=== PATIENT | female | born 1995 | race Hispanic/Latino ===

== ENCOUNTER 2019-08-23 20:03 | Emergency (ER) | payer OTHER, SELFPAY ==
[2019-08-23 20:10] VITALS: BP 130/81; PULSE 78; RESP 16; TEMP 36.9; O2SAT 100
[2019-08-23 20:21] VITALS: BP 130/81; PULSE 84; O2SAT 97
--- NOTE | 2019-08-23 20:26 | ED_ITS ---
HPI - Female Genitourinary <Smith TavarezBLU - Last Filed: 08/23/19 21:13> General Chief complaint: Urogenital-Female Stated complaint: thinks UTI Time Seen by Provider: 08/23/19 20:11 Source: patient and family Mode of arrival: Ambulatory Limitations: no limitations History of Present Illness HPI Narrative: This is a 24-year-old female, nonsmoker, who presents to ED with urinary urgency, frequency, cloudy urine for last 2 days. Patient reports tingling sensation during but worst at the and of urination. Patient reports she start seeing blood in her urine yesterday. Patient states no history of UTI or kidney infections in the past. Patient reports a new sexual partner. Patient was treated with Z-Dave in June 2019 for strep throat infection. Patient denies fever, chills, nausea or vomiting. Patient has been taking [id number] infection for urinary discomfort. LMP in 07/07/19 and uses Mirena for birthcontrol. Patient denies pelvic pain, lesions in her perineum area. Related Data Previous Rx's Medication Instructions Recorded nitrofurantoin macrocrystal 100 mg PO BID 5 Days #10 cap 08/23/19 phenazopyridine [Pyridium] 100 mg PO Q8H PRN #6 tab 08/23/19 Allergies Allergy/AdvReac Type Severity Reaction Status Date / Time No Known Drug Allergies Allergy Verified 08/23/19 21:11 Review of Systems <Smith TavarezBLU - Last Filed: 08/23/19 21:13> Review of Systems Narrative: General: Denies fever, chills, fatigue, malaise, sweats. HEENT: Denies sinus pain, ear pain, sore throat, difficulty swallowing, dizziness. Respiratory: Denies dyspnea, cough, wheezing, hemoptysis, sputum. Cardiovascular: Denies chest pain, palpitations, orthopnea, edema. Gastrointestinal: Denies nausea, vomiting, abdominal pain, diarrhea, constip ation, melena. : See HPI Musculoskeletal: Denies weakness, joint pain or bony pain. Skin: Denies rash, skin lesions, or other. Neurologic: Denies weakness, headache, numbness, change in speech, confusion, seizures, incoordination. Psychiatric: No concerning psychosocial issues. 12-point review of systems is negative except for those stated above. Patient History <BLU Wiseman - Last Filed: 08/23/19 21:13> Medical History (Updated 08/23/19 @ 21:10 by BLU Wiseman) Strep throat (Acute) Smoking Status: Never smoker alcohol intake frequency: 0-2 drinks per day Substance Use Type: does not use Exam <BLU Wiseman - Last Filed: 08/23/19 21:13> Narrative Exam Narrative: GEN: Alert, oriented x 3, well appearing and nourished, and in no acute distress. Head: Normal cephalic, atraumatic. No scalp or temporal tenderness, palpable mass or rash. EYES: Pupils are equal, round, and reactive to light and accommodation. Extraocular muscles are intact bilaterally. There is no subconjunctival hemorrhage, exudate and sclera non-icteric. ENT: Hearing grossly intact. Nose without bleeding, purulent discharge. Mucous membrane moist, no mucosal lesion. Throat without erythema, tonsillar hypertrophy or exudate. Uvula in midline, airway patent. Neck: Trachea in midline. No JVD, non-tender without lymphadenopathy. No masses or thyroid megaly. Supple, non-tender and no meningeal signs. CARDIAC: Normal regular rate and rhythm without murmurs, gallops, or rubs. No chest wall tenderness. No peripheral edema, cyanosis or pallor. Capillary refill is less than 2 seconds. RESPIRATORY: Lungs are clear to auscultate bilaterally. No cough, wheezes, rales, or rhonchi. No stridor, respiratory distress, increase work of breathing, or accessary muscle used. ABD: Abdomen soft, nontender and non-distended. No guarding or rebound tenderness to palpate. Bowel sounds are normal in all 4 quadrants. There is no palpable masses or organomegaly. EXT: Full painless ROM of all extremities with no loss of sensation, strength, effusion or edema. SKIN: Warm, dry, normal color for patient. No erythema, lesions or rash over visible areas. BACK: Nontender without deformity or crepitance. No flank tenderness. NEUROLOGICAL: Alert and oriented to place, time and person. Sensation and motor function intact bilaterally. No facial droops, dysphasia. PSYCHIATRIC: Good judgement and reason, without hallucinations, abnormal affect or abnormal behaviors during the examination. Initial Vital Signs Initial Vital Signs: Vital Signs Temperature 98.5 F 08/23/19 20:10 Pulse Rate 78 08/23/19 20:10 Respiratory Rate 16 08/23/19 20:10 Blood Pressure 130/81 08/23/19 20:10 Pulse Oximetry 100 08/23/19 20:10 <Angel Flynn DO - Last Filed: 08/23/19 23:40> Initial Vital Signs Initial Vital Signs: Vital Signs Temperature 98.5 F 08/23/19 20:10 Pulse Rate 78 08/23/19 20:10 Respiratory Rate 16 08/23/19 20:10 Blood Pressure 130/81 08/23/19 20:10 Pulse Oximetry 100 08/23/19 20:10 Scores <BLU Wiseman - Last Filed: 08/23/19 21:13> GCS Cheney coma scale eye opening: Spontaneous Cheney coma scale verbal response: Orientated Maddi coma scale motor response: Obey commands Cheney coma scale total score: 15 Course <BLU Wiseman - Last Filed: 08/23/19 21:13> Orders Ordered: ED Orders 08/23/19 20:16 Urinalysis and Microscopic Stat Urine Culture Stat Discontinued Medications Nitrofurantoin Macrocrystals (Macrobid 100 Mg Capsule) 100 mg PO NOW ONE Stop: 08/23/19 21:00 Last Admin: 08/23/19 21:18 Dose: 100 mg Documented by: AZEB Phenazopyridine HCl (Pyridium) 100 mg PO NOW ONE Stop: 08/23/19 21:00 Last Admin: 08/23/19 21:18 Dose: 100 mg Documented by: AZEB Vital Signs Vital signs: Vital Signs - 8 hr 08/23/19 20:10 08/23/19 20:21 08/23/19 21:50 Temperature 98.5 F Pulse Rate 78 84 68 Respiratory Rate 16 18 Blood Pressure 130/81 139/78 Blood Pressure [Left Arm] 130/81 Pulse Oximetry 100 97 99 <DO Alexis Smith Last Filed: 08/23/19 23:40> Orders Ordered: ED Orders 08/23/19 20:16 Urinalysis and Microscopic Stat Urine Culture Stat Discontinued Medications Nitrofurantoin Macrocrystals (Macrobid 100 Mg Capsule) 100 mg PO NOW ONE Stop: 08/23/19 21:00 Last Admin: 08/23/19 21:18 Dose: 100 mg Documented by: AZEB Phenazopyridine HCl (Pyridium) 100 mg PO NOW ONE Stop: 08/23/19 21:00 Last Admin: 08/23/19 21:18 Dose: 100 mg Documented by: AZEB Vital Signs Vital signs: Vital Signs - 8 hr 08/23/19 20:10 08/23/19 20:21 08/23/19 21:50 Temperature 98.5 F Pulse Rate 78 84 68 Respiratory Rate 16 18 Blood Pressure 130/81 139/78 Blood Pressure [Left Arm] 130/81 Pulse Oximetry 100 97 99 MDM - Female Genitourinary <BLU Wiseman - Last Filed: 08/23/19 21:13> Differential Diagnosis Differential diagnosis: Likely urinary tract infection and cystitis Medical Records Attestation: I reviewed the patient's medical records. Lab Data Attestation: I reviewed the patient's lab results. Labs: Lab Results 08/23/19 Range/Units 20:16 Urine Color [place] Urine Appearance Cloudy Urine pH TNP Ur Specific [place] TNP Urine Protein TNP Urine Glucose (UA) TNP Urine Ketones TNP Urine Occult Blood TNP Urine Nitrate TNP Urine Bilirubin TNP Urine Urobilinogen TNP Ur Leukocyte Esterase TNP Urine RBC 30-100/hpf H (0-5/HPF) Urine WBC 30-100/hpf H (0-5/HPF) Ur Squamous Epith Cells 0-1 /hpf (0-5/HPF) Amorphous Sediment 1+ Urine Bacteria Few (2-10) H (None) Urine Mucus 1+ H (Negative) Ur Culture Indicated? Specimen cultured Point of Care Testing Test Results Negative MDM Narrative Medical decision making narrative: This is a 24-year-old female who presents to ED with UTI symptoms for 2 days. Patient provided urine sample but difficulty analyzing due to discoloration from [id number] bladder numbing medication. Patient denies fever, chills, nausea or vomiting. Physical exam was benign and there is no costovertebral angle tenderness to percuss. Patient is afebrile with normal vital signs. UA indicates urine RBC, WBC, few bacteria and culture is pending. Given patient's symptoms and preliminary UA test, patient was medicated with nitrofurantoin and Pyridium to treat as simple cystitis. Patient has no history of previous UTIs and urine test was negative. Return precautions were discussed with the patient and patient provided with [facility] phone number to select PCP. Patient verbalized understanding and agreement with the treatment plan. <Angel Flynn, DO - Last Filed: 08/23/19 23:40> Lab Data Labs: Lab Results 08/23/19 Range/Units 20:16 Urine Color [place] Urine Appearance Cloudy Urine pH TNP Ur Specific [place] TNP Urine Protein TNP Urine Glucose (UA) TNP Urine Ketones TNP Urine Occult Blood TNP Urine Nitrate TNP Urine Bilirubin TNP Urine Urobilinogen TNP Ur Leukocyte Esterase TNP Urine RBC 30-100/hpf H (0-5/HPF) Urine WBC 30-100/hpf H (0-5/HPF) Ur Squamous Epith Cells 0-1 /hpf (0-5/HPF) Amorphous Sediment 1+ Urine Bacteria Few (2-10) H (None) Urine Mucus 1+ H (Negative) Ur Culture Indicated? Specimen cultured Point of Care Testing Test Results Negative Discharge Plan Departure Patient Disposition: Home Clinical Impression: Cystitis Discharge Date/Time: 08/23/19 21:52 Instructions: DI for Acute Cystitis Activity Restrictions/Additional Instructions: You have been diagnosed with [cystitis, bladder infection. test was negative. Urine test shows cloudy in appearance with urine RBC and WBC with few bacteria. Urine culture is pending. It was difficulty analyzing urine due to discoloration from [id number] bladder numbing medication. You will receive a phone call if you need different antibiotic medication.]. What to do: *Take your medications as directed. Please continue with nitrofurantoin twice a day for 5 day course. You can take Pyridium as needed up to 3 times a day for next 2 days. Please hydrate yourself well and use measures that we discussed to prevent future UTIs. Nitrofurantoin has been transmitted to [email or web address] in [place]. *Follow up with your primary care provider in 2-3 days, call for an appointment. Let them know you were seen in the ED and that we asked you to be seen in follow up. *Return to ED if you have any new, worsening, or concerning symptoms, such as [chest pain, breathing difficulty, unable to tolerate fluids, abdominal/back pain, high fever, perineum lesions, pelvic pain or any acute concerns]. Prescriptions: New nitrofurantoin macrocrystal 100 mg capsule 100 mg PO BID 5 Days Qty: 10 RF: 0 phenazopyridine [Pyridium] 100 mg tablet 100 mg PO Q8H PRN (Reason: pain) Qty: 6 RF: 0 Referrals: [facility] [Outside] <Angel Flynn DO - Last Filed: 08/23/19 23:40> Cosign ED Attending Cosignature Attestation: I was immediately available in the department for consultation. This documenta tion has been reviewed and I agree with assessment and plan. Supervised by Angel Flynn DO
[2019-08-23 20:49] LABS: Appearance Urine UA CLOUDY; Color Urine UA ORANGE
[2019-08-23 20:51] LABS: Amorphous Sediment Urine 1+; Bacteria Urine Few (2-10); Mucus Urine 1+ (Negative); RBC Urine 30-100/HPF (0-5/HPF); Squamous Epithelial Cell Urine 0-1 /HPF (0-5/HPF); WBC Urine 30-100/HPF (0-5/HPF)
[2019-08-23 20:52] LABS: Culture Indicated Urine Specimen Cultured
[2019-08-23] MEDS: NITROFURANTOIN ER 100 MG CAPSULE PO (21:18)
[2019-08-23] MEDS: PHENAZOPYRIDINE 100 MG TABLET PO (21:18)
[2019-08-23 21:50] VITALS: BP 139/78; PULSE 68; RESP 18; O2SAT 99
== END 2019-08-23 21:52 | disposition home or self-care (01) ==
PROVIDERS: Emergency Provider Nurse Practitioner Family
DX: N30.91 Cystitis, unspecified with hematuria (principal)
CPT/HCPCS: 81001; 81025; 87077; 87086; 87186; 99283

== ENCOUNTER 2020-10-13 18:03 | Emergency (ER) | payer OTHER, SELFPAY ==
[2020-10-13] VITALS (8 sets, daily range): BP systolic 110–119; BP diastolic 62–78; PULSE 54–88; RESP 22; TEMP 36.8; O2SAT 97–100
[2020-10-13 18:34] LABS: Add Manual Diff / Slide Review NO; Basophils Absolute Auto 0 /uL (0-100); Basophils Percent Auto 0.5 % (0-2); Eosinophils Absolute Auto 100 /uL (0-450); Eosinophils Percent Auto 2.7 % (2-4); Hematocrit 38.6 % (36-46); Lymphocytes Absolute Auto 1800 /uL (1100-4500); Lymphocytes Percent Auto 32.9 % (25-40); Mean Corpuscular HGB Conc 33.7 % (30-36); Mean Corpuscular Hemoglobin 30.4 PG (26-34); Mean Corpuscular Volume 90.1 fL (80-100); Monocytes Absolute Auto 500 /uL (0-900); Monocytes Percent Auto 8.3 % (3-14); Neutrophils Absolute Auto 3000 /uL (1500-7000); Neutrophils Percent Auto 55.6 % (50-75); Platelet Count 199 X10^3/uL (150-400); Red Blood Cell Count 4.28 X10^6/uL (4.0-5.2); Red Cell Distribution Width 13.1 % (11.6-14.8); White Blood Cell Count 5.4 X10^3/uL (4.5-11.0)
[2020-10-13 18:47] LABS: INR 1.1 (0.9-1.3); Prothrombin Time 11.9 SECONDS (10.1-12.7)
[2020-10-13 18:49] LABS: PTT Partial Thromboplastin Tim 29 SECONDS (26.4-36.2)
[2020-10-13 19:21] LABS: Alanine Aminotransferase 13 IU/L (<35); Albumin 4.3 g/dL (3.5-5.0); Albumin Globulin Ratio 1.5 (1.0-2.8); Alkaline Phosphatase 62 U/L (38-126); Aspartate Aminotransferase 27 IU/L (14-36); BUN Creatinine Ratio 18.5 (6-22); Bilirubin Total 0.5 mg/dL (0.2-1.3); Blood Urea Nitrogen 12 mg/dL (7-17); Calcium 9.7 mg/dL (8.4-10.2); Carbon Dioxide 24 mmol/L (22-32); Chloride 106 mmol/L (98-107); Estimated Glomerular Filt Rate > 60.0 mL/min (>60); Globulin 2.9 g/dL (1.7-4.1); Glucose 101 mg/dL (70-100); HEMOLYSIS < 15 (0-50); Lipase 169 U/L (23-300); Sodium 138 mmol/L (137-145); Total Protein 7.2 g/dL (6.3-8.2)
--- NOTE | 2020-10-13 19:44 | ED_ITS ---
HPI - Abdominal Pain General Chief Complaint: Abdominal Pain Stated Complaint: STOMACH PAIN NAUSEA LIGHT HEADED Time Seen by Provider: 10/13/20 19:30 Source: patient and family Mode of arrival: Ambulatory History of Present Illness HPI narrative: Patient here with boyfriend. Patient visiting here from [place]. Complains of intermittent episodic periumbilical abdominal pain for the past 4 weeks. Has been consistent past 2 weeks. Radiates to the mid back. Worse with eating makes her nauseous. Worse with standing. Worse with movement. No fever chills. No cough cold congestion. No urinary complaints. Denies . Complains of increased urination as well. However no dysuria. No prior abdominal surgical history. Patient states has been under lot of stress with work. Works at [employer]. Feels very lightheaded because she has not eaten very much in the past couple weeks. Feels like passing out. No chest pain. No flank pain Related Data Previous Rx's Medication Instructions Recorded phenazopyridine [Pyridium] 100 mg PO Q8H PRN #6 tab 08/23/19 dicyclomine 10 mg PO TID #20 cap 10/13/20 ondansetron 4 mg PO Q8H PRN #10 tab 10/13/20 pantoprazole [Protonix] 40 mg PO DAILY #14 tab 10/13/20 sucralfate [Carafate] 1 g PO BID #14 tab 10/13/20 Allergies Allergy/AdvReac Type Severity Reaction Status Date / Time No Known Drug Allergies Allergy Verified 08/23/19 21:11 Review of Systems Review of Systems Narrative: GENERAL: Denies chills, fatigue, malaise, fever, sweats. HEENT: Denies sinus pain, ear pain, sore throat RESPIRATORY: Denies dyspnea, cough CARDIOVASCULAR: Denies chest pain, palpitations GASTROINTESTINAL: Complaint nausea, denies vomiting, complaint abdominal pain : Denies dysuria, frequency, hematuria MUSCULOSKELETAL: denies muscle or bony pain SKIN: Denies rash, skin lesions NEUROLOGIC: Denies weakness, numbness ROS Unobtainable: All systems reviewed & are unremarkable except as noted in HPI and below Patient History Medical History (Updated 10/13/20 @ 21:26 by Titus Montana MD) Strep throat Social History Smoking Status: Never smoker Smoking Status: Never smoker alcohol intake frequency: 0-2 drinks per day Substance Use Type: does not use Exam Narrative Exam Narrative: GENERAL: in no distress, not toxic not dyspneic HEAD: Normocephalic. EYES: Pupils equal round No scleral icterus. No injection no discharge ENT: Mucous membranes moist. NECK: Trachea midline. CARDIOVASCULAR: Regular rate and rhythm without murmurs RESPIRATORY: Clear to auscultation. Breath sounds equal bilaterally. No wheezes, rales, or rhonchi. GASTROINTESTINAL: Abdomen soft, mild epigastric and periumbilical tenderness. Bowel sounds present. No peritoneal signs EXTREMITIES: No gross deformities. BACK: No flank tenderness. NEURO: AOx4. SKIN: Warm and dry PSYCH: Not anxious, is cooperative Initial Vital Signs Initial Vital Signs: Vital Signs Temperature 98.2 F 10/13/20 18:08 Pulse Rate 74 10/13/20 18:08 Respiratory Rate 22 10/13/20 18:08 Blood Pressure 115/75 10/13/20 18:08 Pulse Oximetry 100 10/13/20 18:08 Course Course Course Narrative: No new issues during course of stay Orders Ordered: ED Orders 10/13/20 18:24 Complete Blood Count AUTO DIFF Stat Comprehensive Metabolic Panel Stat Lipase Stat Partial Thromboplastin Time Stat Prothrombin Time INR Stat 10/13/20 18:27 Test Serum,Qual Stat 10/13/20 20:10 Urinalysis and Microscopic Stat 10/13/20 20:33 CT abdomen pelvis w con Stat 10/13/20 21:24 COVID19 -Nasal swab/Pre-Proc Stat Discontinued Medications Al Hydrox/Mg Hydrox/Simethicone 20 ml/ Lidocaine HCl 15 ml 0 ml PO NOW ONE Stop: 10/13/20 20:34 Last Admin: 10/13/20 20:56 Dose: 45 ml Documented by: NAE Sodium Chloride (Normal Saline 0.9%) 1,000 mls @ 1,000 mls/hr IV BOLUS ONE Stop: 10/13/20 20:42 Last Infusion: 10/13/20 21:11 Dose: 0 mls/hr Documented by: Admin: 10/13/20 19:55 Dose: 1,000 mls/hr Documented by: NAE Ondansetron HCl (Ondansetron 4 Mg/2 Ml Inj) 4 mg IV NOW ONE Stop: 10/13/20 19:44 Last Admin: 10/13/20 19:55 Dose: 4 mg Documented by: NAE Pantoprazole Sodium (Pantoprazole 40 Mg Vial) 40 mg IV NOW ONE Stop: 10/13/20 19:44 Last Admin: 10/13/20 19:55 Dose: 40 mg Documented by: NAE Reevaluation(s) Reevaluation #1: Patient states nausea much better. Pain has improved with Protonix as well as GI cocktail. Reviewed results with patient and agrees for follow-up with primary care. Time: 21:25 Reevaluation #2: Reviewed results with patient. COVID negative. No new issues. Time: 21:58 Vital Signs Vital signs: Vital Signs - 8 hr 10/13/20 18:08 10/13/20 19:42 10/13/20 20:17 Temperature 98.2 F Pulse Rate 74 61 Pulse Rate [Orthostatic Lying] 54 L Pulse Rate [Orthostatic Sitting] 88 Pulse Rate [Orthostatic Standing] 69 Respiratory Rate 22 Blood Pressure 115/75 Blood Pressure [Orthostatic Lying] 114/70 Blood Pressure [Orthostatic Sitting] 114/73 Blood Pressure [Orthostatic Standing] 119/78 Pulse Oximetry 100 97 10/13/20 20:30 10/13/20 21:09 10/13/20 21:10 Temperature Pulse Rate 71 69 69 Pulse Rate [Orthostatic Lying] Pulse Rate [Orthostatic Sitting] Pulse Rate [Orthostatic Standing] Respiratory Rate Blood Pressure 111/65 111/65 Blood Pressure [Orthostatic Lying] Blood Pressure [Orthostatic Sitting] Blood Pressure [Orthostatic Standing] Pulse Oximetry 97 98 98 10/13/20 21:30 10/13/20 22:00 Temperature Pulse Rate 62 77 Pulse Rate [Orthostatic Lying] Pulse Rate [Orthostatic Sitting] Pulse Rate [Orthostatic Standing] Respiratory Rate Blood Pressure 110/62 110/66 Blood Pressure [Orthostatic Lying] Blood Pressure [Orthostatic Sitting] Blood Pressure [Orthostatic Standing] Pulse Oximetry 97 97 MDM - Abdominal Pain Differential Diagnosis Differential diagnosis: Likely abdominal pain, acute appendicitis, constipation, diverticulitis, gastroenteritis, pancreatitis and small bowel obstruction Lab Data Attestation: I reviewed the patient's lab results. Result diagrams: 10/13/20 18:24 10/13/20 18:24 Labs: Lab Results 10/13/20 10/13/20 10/13/20 Range/Units 18:24 18:24 18:24 WBC 5.4 (4.5-11.0) X10^3/uL RBC 4.28 (4.0-5.2) X10^6/uL Hgb 13.0 (12.0-16.0) g/dL Hct 38.6 (36-46) % MCV 90.1 (80-100) fL MCH 30.4 (26-34) PG MCHC 33.7 (30-36) % RDW 13.1 (11.6-14.8) % Plt Count 199 (150-400) X10^3/uL Neut % (Auto) 55.6 (50-75) % Lymph % (Auto) 32.9 (25-40) % [place] % (Auto) 8.3 (3-14) % Eos % (Auto) 2.7 (2-4) % Baso % (Auto) 0.5 (0-2) % Neut # (Auto) 3000 (6713-9286) /uL Lymph # (Auto) 1800 (7809-2184) /uL [place] # (Auto) 500 (0-900) /uL Eos # (Auto) 100 (0-450) /uL Baso # (Auto) 0 (0-100) /uL PT 11.9 (10.1-12.7) SECONDS INR 1.1 (0.9-1.3) APTT 29 (26.4-36.2) SECONDS Sodium 138 (137-145) mmol/L Potassium 4.0 (3.4-5.1) mmol/L Chloride 106 (98-107) mmol/L Carbon Dioxide 24 (22-32) mmol/L BUN 12 (7-17) mg/dL Creatinine 0.65 (0.52-1.04) mg/dL Estimated GFR > 60.0 (>60) mL/min BUN/Creatinine Ratio 18.5 (6-22) Glucose 101 H (70-100) mg/dL Calcium 9.7 (8.4-10.2) mg/dL Total Bilirubin 0.5 (0.2-1.3) mg/dL AST 27 (14-36) IU/L ALT 13 (<35) IU/L Alkaline Phosphatase 62 (38-126) U/L Total Protein 7.2 (6.3-8.2) g/dL Albumin 4.3 (3.5-5.0) g/dL Globulin 2.9 (1.7-4.1) g/dL Albumin/Globulin Ratio 1.5 (1.0-2.8) Lipase 169 (23-300) U/L Serum , Qual (Negative) Urine Color Urine Appearance Urine pH (4.5-8.0) Ur Specific [place] (1.000-1.035) Urine Protein (Negative) Urine Glucose (UA) (Negative) g/dL Urine Ketones (NEGATIVE) Urine Occult Blood (Negative) Urine Nitrate (Negative) Urine Bilirubin (NEGATIVE) Urine Urobilinogen (0.2) E.U./dL Ur Leukocyte Esterase (NEGATIVE) Urine RBC (0-5/HPF) Urine WBC (0-5/HPF) Ur Squamous Epith Cells (0-5/HPF) Amorphous Sediment Urine Bacteria (None) Ur Culture Indicated? SARS-CoV-2 (PCR) (Negative) 10/13/20 10/13/20 10/13/20 Range/Units 18:27 20:10 21:24 WBC (4.5-11.0) X10^3/uL RBC (4.0-5.2) X10^6/uL Hgb (12.0-16.0) g/dL Hct (36-46) % MCV (80-100) fL MCH (26-34) PG MCHC (30-36) % RDW (11.6-14.8) % Plt Count (150-400) X10^3/uL Neut % (Auto) (50-75) % Lymph % (Auto) (25-40) % [place] % (Auto) (3-14) % Eos % (Auto) (2-4) % Baso % (Auto) (0-2) % Neut # (Auto) (4626-6813) /uL Lymph # (Auto) (5954-5889) /uL [place] # (Auto) (0-900) /uL Eos # (Auto) (0-450) /uL Baso # (Auto) (0-100) /uL PT (10.1-12.7) SECONDS INR (0.9-1.3) APTT (26.4-36.2) SECONDS Sodium (137-145) mmol/L Potassium (3.4-5.1) mmol/L Chloride (98-107) mmol/L Carbon Dioxide (22-32) mmol/L BUN (7-17) mg/dL Creatinine (0.52-1.04) mg/dL Estimated GFR (>60) mL/min BUN/Creatinine Ratio (6-22) Glucose (70-100) mg/dL Calcium (8.4-10.2) mg/dL Total Bilirubin (0.2-1.3) mg/dL AST (14-36) IU/L ALT (<35) IU/L Alkaline Phosphatase (38-126) U/L Total Protein (6.3-8.2) g/dL Albumin (3.5-5.0) g/dL Globulin (1.7-4.1) g/dL Albumin/Globulin Ratio (1.0-2.8) Lipase (23-300) U/L Serum , Qual Negative (Negative) Urine Color Yellow Urine Appearance Clear Urine pH 7.5 (4.5-8.0) Ur Specific [place] 1.025 (1.000-1.035) Urine Protein Negative (Negative) Urine Glucose (UA) Trace H (Negative) g/dL Urine Ketones Negative (NEGATIVE) Urine Occult Blood Negative (Negative) Urine Nitrate Negative (Negative) Urine Bilirubin Negative (NEGATIVE) Urine Urobilinogen 0.2 (0.2) E.U./dL Ur Leukocyte Esterase Negative (NEGATIVE) Urine RBC 0-1/hpf D (0-5/HPF) Urine WBC 0-1/hpf (0-5/HPF) Ur Squamous Epith Cells 0-1 /hpf (0-5/HPF) Amorphous Sediment 2+ Urine Bacteria None seen (None) Ur Culture Indicated? Cult not indicated SARS-CoV-2 (PCR) Negative (Negative) Imaging Data CT scan - abdomen/pelvis: Radiologist's Impression: [address] [id number] Scan ReportSigned Patient: Preethi Monteiro R#: [id number]: 1995Acct:[id number]/Sex: 25 / FDate of Service: 10/13/20Loc: EDAccession Number: [id number] Procedure: CT abdomen pelvis w con Ordering Provider: Titus Montana MD PROCEDURE: CT ABDOMEN PELVIS W CON INDICATIONS: IV contrast only/abdominal pain TECHNIQUE: After the administration of intravenous contrast, 5 mm thick sections acquired from the diaphragm to the symphysis. 5 mm coronal and sagittal reformats were acquired. For radiation dose reduction, the following was used: automated exposure control, adjustment of mA and/or kV according to patient size. COMPARISON: None. FINDINGS: ABDOMEN: Lung bases: Normal. Heart: No significant findings. Liver: Normal. Gallbladder: Contracted otherwise unremarkable Bile ducts: Normal. Pancreas: Normal. Spleen: Normal. Adrenals: Normal. Kidneys and Ureters: Normal. Stomach and duodenum: Normal. Bowel: Few scattered air-fluid levels seen in small bowel loops however no pathologic dilatation or discrete transition point. Appendix is not clearly identified however no suspicious pericecal inflammatory changes are seen. Other: No free fluid or air. Abdominal nodes: Normal. Aorta and IVC: Normal in size. Ventral wall: Normal. PELVIS: Bladder: Normal. Normally positioned IUD incidentally noted. Inguinal region: No hernia. Pelvic nodes: Normal. Bones: No suspicious bony lesions. No vertebral body compression fractures. IMPRESSION: Prominence of air-fluid levels seen in small bowel loops raising possibility of low-grade enteritis and or malabsorption Otherwise, no acute abnormality. Dictated by: Yonatan Alvarez M.D. on 10/13/2020 at 21:08 Approved by: Yonatan Alvarez M.D. on 10/13/2020 at 21:12 [facility] Narrative Medical decision making narrative: Appropriate for discharge home. Laboratory studies workup and imaging reassuring. Reviewed results with patient. Agrees with treatment plan and follow-up. Prescriptions provided. May need endoscopy or GI referral through family doctor. Discharge Plan Departure Patient Disposition: Home Clinical Impression: Gastroenteritis Instructions: DI for Acute Abdominal Pain, Gastroenteritis Diet Activity Restrictions/Additional Instructions: See family doctor within a week for recheck and for referral for Gastroenterology or endoscopy of the stomach/colonoscopy. Keep well hydrated. Return if worse if any questions or concerns Prescriptions: New sucralfate [Carafate] 1 gram tablet 1 g PO BID Qty: 14 RF: 0 ondansetron 4 mg tablet,disintegrating 4 mg PO Q8H PRN (Reason: nausea and vomiting) Qty: 10 RF: 0 dicyclomine 10 mg capsule 10 mg PO TID Qty: 20 RF: 0 pantoprazole [Protonix] 40 mg tablet,delayed release (DR/EC) 40 mg PO DAILY Qty: 14 RF: 0 No Action phenazopyridine [Pyridium] 100 mg tablet 100 mg PO Q8H PRN (Reason: pain) Qty: 6 RF: 0 Stand Alone Forms: Work Release Note
[2020-10-13] MEDS: ONDANSETRON 4 MG/2 ML INJ IV (19:55)
[2020-10-13] MEDS: PANTOPRAZOLE 40 MG VIAL IV (19:55)
[2020-10-13] MEDS: SODIUM CHLORIDE 0.9% 1,000 ML 1000 ML IV (19:55)
[2020-10-13 19:57] LABS: Pregnancy Test Serum,Qual Negative (Negative)
[2020-10-13 20:16] LABS: Bacteria Urine None Seen
[2020-10-13 20:18] LABS: Appearance Urine UA CLEAR; Bilirubin Urine UA NEGATIVE (NEGATIVE); Color Urine UA YELLOW; Glucose Urine UA TRACE g/dL (Negative); Ketones Urine UA NEGATIVE (NEGATIVE); Leukocyte Esterase Urine UA NEGATIVE (NEGATIVE); Nitrite Urine UA NEGATIVE (Negative); Occult Blood Urine UA NEGATIVE (Negative); Protein Urine UA NEGATIVE (Negative); Specific Gravity Urine UA 1.025 (1.000-1.035); Urobilinogen Urine UA 0.2 E.U./dL (0.2)
--- NOTE | 2020-10-13 20:33 | DI.CT.S_ITS ---
PROCEDURE: CT ABDOMEN PELVIS W CON INDICATIONS: IV contrast only/abdominal pain TECHNIQUE: After the administration of intravenous contrast, 5 mm thick sections acquired from the diaphragm to the symphysis. 5 mm coronal and sagittal reformats were acquired. For radiation dose reduction, the following was used: automated exposure control, adjustment of mA and/or kV according to patient size. COMPARISON: None. FINDINGS: ABDOMEN: Lung bases: Normal. Heart: No significant findings. Liver: Normal. Gallbladder: Contracted otherwise unremarkable Bile ducts: Normal. Pancreas: Normal. Spleen: Normal. Adrenals: Normal. Kidneys and Ureters: Normal. Stomach and duodenum: Normal. Bowel: Few scattered air-fluid levels seen in small bowel loops however no pathologic dilatation or discrete transition point. Appendix is not clearly identified however no suspicious pericecal inflammatory changes are seen. Other: No free fluid or air. Abdominal nodes: Normal. Aorta and IVC: Normal in size. Ventral wall: Normal. PELVIS: Bladder: Normal. Normally positioned IUD incidentally noted. Inguinal region: No hernia. Pelvic nodes: Normal. Bones: No suspicious bony lesions. No vertebral body compression fractures. IMPRESSION: Prominence of air-fluid levels seen in small bowel loops raising possibility of low-grade enteritis and or malabsorption Otherwise, no acute abnormality. Dictated by: Yonatan Alvarez M.D. on 10/13/2020 at 21:08 Approved by: Yonatan Alvarez M.D. on 10/13/2020 at 21:12
[2020-10-13 20:46] LABS: pH Urine UA 7.5 (4.5-8.0)
[2020-10-13 20:47] LABS: Amorphous Sediment Urine 2+; Culture Indicated Urine Cult Not Indicated; RBC Urine 0-1/HPF (0-5/HPF); Squamous Epithelial Cell Urine 0-1 /HPF (0-5/HPF); WBC Urine 0-1/HPF (0-5/HPF)
[2020-10-13] MEDS: MAG HYDROX/ALUMINUM/SIMETH SUS 20 ML, LIDOCAINE VISCOUS 2% 15 ML PO (20:56)
[2020-10-13 21:44] LABS: COVID19 -Nasal RAPID Negative (Negative)
== END 2020-10-13 22:04 | disposition home or self-care (01) ==
PROVIDERS: Emergency Medicine; Emergency Provider Emergency Medicine
DX: K52.9 Noninfective gastroenteritis and colitis, unspecified (principal); R11.0 Nausea; Z20.822 Contact with and (suspected) exposure to COVID-19
CPT/HCPCS: 36415; 74177; 80053; 81001; 83690; 84703; 85025; 85610; 85730; 87635; 96361; 96374; 96375; 99284; C9803; C9113; J2405; Q9967